=== PATIENT | male | born 1975 | race Caucasian/White ===

== ENCOUNTER 2019-08-13 14:06 | Emergency (ER) | payer MEDICAID ==
[~2019-08-13] VITALS: Ht 172.7 cm; Wt 100.0 kg
[2019-08-13] MEDS ORDERED: KETOROLAC 60MG/2ML VIAL IM ONE (15:30)
[2019-08-13 16:27] VITALS: BP 145/72
== END 2019-08-13 16:30 | disposition home or self-care (01) ==
LOC: ER 14:06
DX: M25.561 Pain in right knee (principal)
CPT/HCPCS: 73562; 96372; 99283; J1885